=== PATIENT | male | born 1990 | race African-American/Black ===

== ENCOUNTER 2016-10-27 20:28 | Emergency (ER) | payer MEDICAID ==
[~2016-10-27] VITALS: Ht 162.6 cm; Wt 74.8 kg
[~2016-10-27 20:28] MED LIST: IBUPROFEN600 MG ORAL; KETOCONAZOLE15 GM TOP; ROBITUSSIN COU1 EACH PO
[2016-10-27 20:44] VITALS: BP 132/68
[2016-10-27] MEDS ORDERED: Ketorolac 60mg Inj IM ONE (21:00)
[2016-10-27] MEDS ORDERED: IBUPROFEN600 MG ORAL (21:47)
--- NOTE | 2016-10-27 22:10 | Emergency Room Report ---
History of Present Illness General Chief Complaint: Headache Source: Patient Present Illness [facility] The patient presented for gradual onset of headache over the past 2 days. The patient gradual onset of symptoms associated with some nasal congestion. Patient denied any neck stiffness. He denied fever. He reported having some sore throat. He denied any new medication use. Patient had prior history of similar type headaches. He had not been vomiting or having any diarrhea. Allergies: Coded Allergies: No Known Allergies (Unverified , 03/17/16) Patient History Past Medical History: see triage record Reviewed Nursing Documentation: PMH: Agreed, PSxH: Agreed Nursing Documentation-PMH Past Medical History: No Stated History Hx Cardiac Problems: No - SCOLIOSIS Review of Systems All Other Systems: negative except mentioned in HPI Physical Exam Vital Signs Date Time Temp Pulse Resp B/P Pulse Ox O2 Delivery O2 Flow Rate FiO2 10/27/16 20:35 98.1 76 15 132/68 98 Room Air General Appearance: well appearing, no apparent distress, alert, GCS 15 Head: normocephalic, atraumatic Eyes: bilateral eye PERRL ENT: hearing grossly normal, normal voice Neck: full range of motion, supple Respiratory: no respiratory distress, speaking full sentences Gastrointestinal: normal bowel sounds, non tender, soft, no mass Musculoskeletal: normal inspection, digits/nails normal, no calf tenderness Neurologic: normal inspection, alert, oriented x3, responsive, normal gait Psychiatric: normal inspection, mood/affect normal Skin: no rash Medical Decision Making Diagnostic Impression: Primary Impression: Headache due to viral infection ER Course Patient presented for headache. Differential diagnoses included but was not limited to skull fracture, subarachnoid hemorrhage, meningitis, aneurysm, mass lesion, intracranial hemorrhage. Patient's benign exam and does not appear to require any further imaging or laboratory testing at this time. The patient appears to have symptoms consistent with a viral sinusitis.The patient is advised to follow up with primary care doctor in 1-2 days. Patient is advised to return if any worsening condition or if any changes in status that are concerning. Last Vital Signs Date Time Temp Pulse Resp B/P Pulse Ox O2 Delivery O2 Flow Rate FiO2 10/27/16 21:21 98.1 10/27/16 20:44 81 15 132/68 98 Room Air Status: improved Disposition: HOME, SELF-CARE Condition: Stable Scripts Ibuprofen* (MOTRIN*) 600 Mg Tablet 600 MG ORAL THREE TIMES A DAY, #30 TAB 0 Refills Prov: Miguel Almeida 10/27/16 Patient Instructions: Sinus Headache Miguel Almeida Oct 27, 2016 22:10
[2016-10-27 22:11] VITALS: BP 143/80
== END 2016-10-27 22:11 | disposition home or self-care (01) ==
LOC: EMR 20:48
DX: B34.9 Viral infection, unspecified (principal)
CPT/HCPCS: 96372; 99283

== ENCOUNTER 2019-12-06 21:53 | Emergency (ER) | payer BC, MEDICAID ==
[~2019-12-06] VITALS: Ht 162.6 cm; Wt 68.0 kg
[2019-12-06 22:05] VITALS: BP 149/92
--- NOTE | 2019-12-06 22:05 | NUR ---
ED Nurse Note: Pt walked in c/o bilateral hand pain after wearing smaller gloves than his hands on 11/29. Pt stated his hands feels tight. Pt stated he can move fingers and cap refill less than 3 secs.
[2019-12-06] MEDS ORDERED: IBUPROFEN600 MG ORAL (22:33)
--- NOTE | 2019-12-06 22:33 | Emergency Room Report ---
History of Present Illness General Chief Complaint: Pain Source: Patient Present Illness HPI Is a 29-year-old male who is right-hand dominant. Presents with chief complaint of hand pain and spasm. He said this occurred at work over the weekend. He said he is wearing a medium glove there is too tight for him and over on top of it he was wearing a large cleft. He said while he was working afterward he felt some spasm in his hands. He said his fingers cramped up. He has no symptoms right now. Denies any other complaint. Was a make sure nothing is fine before he go back to work. Allergies: Coded Allergies: No Known Allergies (Unverified , 03/17/16) Patient History Past Medical History: see triage record, old chart reviewed Past Surgical History: none Pertinent Family History: none Social History: Denies: smoking Immunizations: other Reviewed Nursing Documentation: PMH: Agreed; PSxH: Agreed Nursing Documentation-PMH Hx Cardiac Problems: No - SCOLIOSIS Review of Systems Eye: Denies: eye pain, blurred vision ENT: Denies: ear pain, nose congestion, throat swelling Respiratory: Denies: cough, shortness of breath Cardiovascular: Denies: chest pain, palpitations Gastrointestinal: Denies: abdominal pain, diarrhea, nausea, vomiting Musculoskeletal: Denies: back pain, joint pain Skin: Denies: rash Neurological: Denies: headache, numbness Endocrine: Denies: increased thirst, increased urine Hematologic/Lymphatic: Denies: easy bruising All Other Systems: negative except mentioned in HPI Physical Exam Vital Signs Date Time Temp Pulse Resp B/P (MAP) Pulse Ox O2 Delivery O2 Flow Rate FiO2 12/06/19 22:01 97.9 82 16 149/92 (111) 98 Room Air Vitals normal Sp02 EP Interpretation: reviewed, normal General Appearance: well appearing, no apparent distress, alert Head: normocephalic, atraumatic Eyes: bilateral eye PERRL, bilateral eye EOMI ENT: hearing grossly normal, normal pharynx Neck: full range of motion, supple, no meningismus Respiratory: chest non-tender, lungs clear, normal breath sounds Cardiovascular #1: regular rate, rhythm, no murmur Gastrointestinal: normal bowel sounds, non tender, no mass, no organomegaly, no bruit, non-distended Musculoskeletal: back normal, normal range of motion, gait/station normal Psychiatric: mood/affect normal Medical Decision Making Diagnostic Impression: Primary Impression: Muscle cramps ER Course This patient presents with mild muscle cramping. No evidence of any fracture of the infection. Will discharge home. Last Vital Signs Date Time Temp Pulse Resp B/P (MAP) Pulse Ox O2 Delivery O2 Flow Rate FiO2 12/06/19 22:05 97.9 76 16 149/92 98 Room Air Status: unchanged Disposition: HOME, SELF-CARE Condition: Stable Scripts Ibuprofen* (MOTRIN*) 600 Mg Tablet 600 MG ORAL THREE TIMES A DAY, #30 TAB 0 Refills Prov: Kenton Guzman MD 12/06/19 Additional Instructions: Follow-up with your doctor in 7 days. Return if worse. Kenton Guzman MD Dec 06, 2019 22:33
--- NOTE | 2019-12-06 22:38 | NUR ---
ER DISCHARGE NOTE: Patient is cleared to be discharged per ERMD, pt is aox4, on room air, with stable vital signs. pt was given dc and prescription instructions, pt was able to verbalize understanding, pt id band removed. pt is able to ambulate with steady gait. pt took all belongings.
== END 2019-12-06 22:35 | disposition home or self-care (01) ==
LOC: EMR 22:15
DX: R25.2 Cramp and spasm (principal); M41.9 Scoliosis, unspecified
CPT/HCPCS: 99281